=== PATIENT | male | born 1995 | race Two or more races ===

== ENCOUNTER 2017-04-18 21:26 | Emergency (ER) | payer SELFPAY ==
[~2017-04-18] VITALS: Ht 170.2 cm; Wt 79.4 kg
[2017-04-18 22:00] VITALS: BP 127/75
== END 2017-04-18 23:17 | disposition home or self-care (01) ==
LOC: ER 21:28
DX: R00.2 Palpitations (principal); R00.0 Tachycardia, unspecified; F41.9 Anxiety disorder, unspecified; F19.10 Other psychoactive substance abuse, uncomplicated; F17.210 Nicotine dependence, cigarettes, uncomplicated; F10.10 Alcohol abuse, uncomplicated; F11.10 Opioid abuse, uncomplicated; Z59.0 Homelessness
CPT/HCPCS: 93005; 99284; 99406; A4606 ×2; Z7610 ×2

== ENCOUNTER 2017-04-20 20:12 | Emergency (ER) | payer SELFPAY ==
[~2017-04-20] VITALS: Ht 162.6 cm; Wt 86.2 kg
[2017-04-20 20:12] VITALS: BP 141/91
--- NOTE | 2017-04-20 20:35 | NUR ---
CALLED FOR ROOM ASSIGNMENT; INFORMED "PT IN RESTROOM"
--- NOTE | 2017-04-20 20:50 | NUR ---
CALLED AGAIN; NOT IN LOBBY/RESTROOM OR OUTSIDE ER.
--- NOTE | 2017-04-20 21:20 | NUR ---
CALLED AGAIN X2; INFORMED BY SECURITY "WE SAW HIM WALK OUT A WHILE BACK"
--- NOTE | 2017-04-20 22:22 | NUR ---
INFORMED BY ADMITTING "PT LEFT AGAIN"
== END 2017-04-20 22:26 | disposition left against medical advice (07) ==
LOC: ER 20:14
DX: Z53.21 Procedure and treatment not carried out due to patient leaving prior to being seen by health care provider (principal)
CPT/HCPCS: A4606; Z7610

== ENCOUNTER 2019-01-03 05:51 | Emergency (ER) | payer MEDICAID ==
[~2019-01-03] VITALS: Ht 167.6 cm; Wt 86.2 kg
[2019-01-03] MEDS ORDERED: LEVETIRACETAM (250 MG) 250 MG TABLET PO ONE ×2 (06:18→06:30)
[2019-01-03] MEDS ORDERED: QUETIAPINE FUMARATE 25 MG TABLET ONE (06:18)
[2019-01-03 06:19] VITALS: BP 156/92
[2019-01-03] MEDS ORDERED: QUETIAPINE FUMARATE 25 MG TABLET PO SCH (06:30)
--- NOTE | 2019-01-03 06:43 | NUR ---
Patient discharged to home in stable condition. Written and verbal after care instructions given. Patient verbalizes understanding of instruction. Pt ambulatory with a steady gait
== END 2019-01-03 06:44 | disposition home or self-care (01) ==
LOC: ER 05:53
DX: G40.909 Epilepsy, unspecified, not intractable, without status epilepticus (principal); F41.9 Anxiety disorder, unspecified; F31.9 Bipolar disorder, unspecified; F19.10 Other psychoactive substance abuse, uncomplicated; F10.10 Alcohol abuse, uncomplicated; F17.200 Nicotine dependence, unspecified, uncomplicated; Y90.9 Presence of alcohol in blood, level not specified; Z59.0 Homelessness

== ENCOUNTER 2019-01-24 14:25 | Emergency (ER) | payer MEDICAID ==
[~2019-01-24] VITALS: Ht 167.6 cm; Wt 89.4 kg
--- NOTE | 2019-01-24 14:50 | NUR ---
PATIENT CAME IN TO THE ER C/O MARITA ALEMAN AND REQUESTING ATIVAN AND CLONAZEPAM PRESCRIPTION. ON ROOM AIR, BREATHING EVENLY AND UNLABORED. CONNECTED TO THE MONITOR AND PULSE OX. WILL CONTINUE TO MONITOR ACCORDINGLY.
[2019-01-24 14:57] VITALS: BP 120/68
--- NOTE | 2019-01-24 14:57 | NUR ---
Patient discharged to home in stable condition. Written and verbal after care instructions given. Patient verbalizes understanding of instruction.
== END 2019-01-24 14:57 | disposition home or self-care (01) ==
LOC: ER 14:26
DX: L03.116 Cellulitis of left lower limb (principal); L03.115 Cellulitis of right lower limb; F13.239 Sedative, hypnotic or anxiolytic dependence with withdrawal, unspecified; R56.9 Unspecified convulsions; M54.9 Dorsalgia, unspecified; G89.29 Other chronic pain; F41.9 Anxiety disorder, unspecified; F32.9 Major depressive disorder, single episode, unspecified; F19.10 Other psychoactive substance abuse, uncomplicated; F10.10 Alcohol abuse, uncomplicated; F17.200 Nicotine dependence, unspecified, uncomplicated; Y90.9 Presence of alcohol in blood, level not specified; Z59.0 Homelessness